=== PATIENT | male | born 1985 | race Caucasian/White ===

== ENCOUNTER → 2017-06-05 | Outpatient (REF) | LOC: WSOH 13:01 | DX: Z02.89 Encounter for other administrative examinations (principal) ==

== ENCOUNTER 2021-01-04 03:55 | Emergency (ER) | payer BC ==
[~2021-01-04] VITALS: Ht 182.9 cm; Wt 100.0 kg
[2021-01-04 04:00] VITALS: BP 156/111
[2021-01-04] MEDS ORDERED: NORCO 325 MG-51 TAB PO (04:55)
[2021-01-04] MEDS ORDERED: CLEOCIN HCL300 MG PO (04:55)
[2021-01-04 05:07] VITALS: PULSE 81
== END 2021-01-04 05:07 | disposition home or self-care (01) ==
LOC: COL.ER 03:55
DX: K08.9 Disorder of teeth and supporting structures, unspecified (principal)